=== PATIENT | female | born 1940 | race Caucasian/White ===

== ENCOUNTER 2018-06-23 10:25 | Emergency (ER) | payer MEDICARE, BC | END 2018-06-23 12:44 | disposition home or self-care (01) | LOC: ERS 10:25 | DX: R59.0 Localized enlarged lymph nodes (principal); H60.12 Cellulitis of left external ear; E03.9 Hypothyroidism, unspecified; I10 Essential (primary) hypertension; Z79.899 Other long term (current) drug therapy | CPT/HCPCS: 99282 ==

== ENCOUNTER 2019-09-28 10:24 | Emergency (ER) | payer MEDICARE, BC ==
[2019-09-28 11:53] LABS: #Basophils 0.1 thou/uL (0.0-0.2); #Eosinphils 0.2 thou/uL (0.0-0.7); #Lymphocytes 2.3 thou/uL (1.20-3.40); #Monocytes 0.7 thou/uL (0.11-0.59); #Neutrophils 4.8 thou/uL (1.40-6.50); %Basophils 0.8 % (0.0-1.0); %Eosinophils 2.1 % (0.0-10.0); %Monocytes 8.5 % (0.0-10.0); %Neutrophils 59.7 % (42.0-75.0); Hemoglobin 12.8 g/dL (12.0-16.0); Mean Corpuscular Hemoglobin 33.1 pg (27.0-31.0); Mean Corpuscular Volume 94.6 fL (78.0-98.0); Mean Platelet Volume 7.1 fL (7.4-10.4); Platelet Count 273 thou/uL (130-400); RBC Distribution Width 11.2 % (11.5-14.5); Red Blood Cell (RBC) Count 3.86 mill/uL (4.20-5.40)
[2019-09-28 12:14] LABS: ALT (SGPT) 16 U/L (8-55); AST (SGOT) 20 U/L (5-34); Albumin 3.9 g/dL (3.4-4.8); Alkaline Phosphatase 60 U/L (40-110); Anion Gap 11 mmol/L (10-20); BUN (Urea Nitrogen) 30 mg/dL (9.8-20.1); Bilirubin, Total 0.5 mg/dL (0.2-1.2); Calc. Creatinine Clearance 0 mL/min (70-130); Calcium 9.7 mg/dL (7.8-10.44); Carbon Dioxide 31 mmol/L (23-31); Chloride 102 mmol/L (98-107); Estimated GFR-MDRD 51; Globulin 4.1 g/dL (2.4-3.5); Glucose 107 mg/dL (83-110); Potassium 3.8 mmol/L (3.5-5.1); Sodium 140 mmol/L (136-145)
--- NOTE | 2019-09-28 12:16 | CT ---
CT Brain WO Con History: Headache Comparison: CT brain October 14, 2016 Findings: No acute hemorrhage or infarct. No midline shift or mass effect. Ventricular size and extra -axial CSF spaces are normal. The calvarium is intact. Paranasal sinuses and mastoids are clear. Impression: No acute intracranial abnormality.
--- NOTE | 2019-09-28 14:30 | MRI ---
Brain MRI without contrast: 09/28/2019 COMPARISON: 11/16/2012 HISTORY: Right-sided facial pain and numbness TECHNIQUE: Multiplanar multisequence MR imaging of the brain obtained without contrast FINDINGS: The diffusion weighted imaging demonstrates no evidence for acute infarction. The regional bone marrow signal intensity appears within normal limits. Arterial flow voids at the axial level of the skull base appear unremarkable on the T2-weighted imagi ng. The imaged paranasal sinuses/mastoid air cells appear grossly unremarkable. There are scattered foci of increased T2 and FLAIR signal within the white matter suggesting a mild d egree of small vessel disease, stable when compared to the 2012 examination, including a 5-6 mm focus within the medial right frontal lobe near the vertex. The axial gradient echo imaging demonstra kimmy no evidence for intracranial hemorrhage. IMPRESSION: No acute findings.
== END 2019-09-28 15:15 | disposition home or self-care (01) ==
LOC: ERS 10:24
DX: R51 Headache (principal); E03.9 Hypothyroidism, unspecified; I10 Essential (primary) hypertension; Z79.899 Other long term (current) drug therapy
CPT/HCPCS: 36415; 70450; 70551; 80053; 85025; 93005

== ENCOUNTER 2024-07-22 13:05 | Emergency (ER) | payer MEDICARE, BC ==
[2024-07-22] MEDS ORDERED: Ketorolac Tromethamine 30 MG (1 mL) VIAL ONE (14:41)
== END 2024-07-22 14:49 | disposition home or self-care (01) ==
LOC: ERS 13:05
DX: S80.01XA Contusion of right knee, initial encounter (principal); M17.11 Unilateral primary osteoarthritis, right knee; I10 Essential (primary) hypertension; W01.198A Fall on same level from slipping, tripping and stumbling with subsequent striking against other object, initial encounter
CPT/HCPCS: 73502; 73564 ×2; J1885; 99283